=== PATIENT | female | born 1965 | race Two or more races ===

== ENCOUNTER 2019-04-08 22:06 | Emergency (ER) | payer OTHER ==
[~2019-04-08] VITALS: Ht 157.5 cm; Wt 54.0 kg
[2019-04-08 22:13] VITALS: BP 101/52
== END 2019-04-08 23:14 | disposition home or self-care (01) ==
LOC: ER 22:15
DX: L03.116 Cellulitis of left lower limb (principal); G89.29 Other chronic pain